=== PATIENT | male | born 1990 | race Caucasian/White ===

== ENCOUNTER 2020-09-16 13:00 | Emergency (ER) | payer OTHER ==
[~2020-09-16] VITALS: Ht 185.4 cm; Wt 216.0 kg
[2020-09-16 13:10] VITALS: BP 141/100
--- NOTE | 2020-09-16 13:24 | PHYS DOC ---
General Adult EDM: Chief Complaint: FOOT INJURY PAIN HPI: HPI: Patient is a 30 year old morbidly obese male who presents to the ED today complaining of moderate pain to the left lateral foot that began yesterday. Patient denies any injury. Describes the pain as sharp and intermittent worse on weightbearing. States he has had similar pain before but he had cellulitis at that point. Denies any fever. Review of Systems: Review of Systems: Constitutional: Denies fever or chills. [] Musculoskeletal: Reports left lateral foot pain Integument: Denies rash. [] Neurologic: Denies headache, focal weakness or sensory changes. [] Psychiatric: Denies depression or anxiety. [] Heart Score: Risk Factors: Risk Factors: DM, Current or recent (<one month) smoker, HTN, HLP, family history of CAD, obesity. Risk Scores: Score 0 - 3: 2.5% MACE over next 6 weeks - Discharge Home Score 4 - 6: 20.3% MACE over next 6 weeks - Admit for Clinical Observation Score 7 - 10: 72.7% MACE over next 6 weeks - Early Invasive Strategies Physical Exam: PE: Constitutional: Well developed, well nourished, no acute distress, non-toxic appearance. [] Skin: Warm, dry, no erythema, no rash. [] Back: No tenderness, no CVA tenderness. [] Extremities: Morbidly obese patient, left foot with no obvious deformity. Soft tissue swelling noted on the left foot, no redness on bilateral feet. +2 bilateral pedal pulses. Range of motion intact of bilateral feet. Negative Homans' sign to the left lower extremity. Neurologic: Alert and oriented X 3, normal motor function, normal sensory function, no focal deficits noted. [] Psychologic: Affect normal, judgement normal, mood normal. [] EKG: EKG: [] Radiology/Procedures: Radiology/Procedures: []PROCEDURE: FOOT LEFT 3V 3 views left foot dated 09/16/2020. No comparison available. CLINICAL INDICATION: Pain on lateral aspect of foot. FINDINGS: 3 views of left foot show normal bony alignment. No displaced fracture. No acute osseous or articular abnormality. No periostitis or bone destruction. There is mild soft tissue swelling. IMPRESSION: Soft tissue swelling with no apparent underlying acute bony abnormality. Electronically signed by: Naveen Tolbert MD (09/16/2020 1:40 PM) [facility] DICTATED and SIGNED BY: NAVEEN TOLBERT MD DATE: 09/16/20 1340 PROCEDURE: VENOUS LOWER EXTREMITY LEFT Left lower extremity venous Doppler dated 09/16/2020. No comparison available. Clinical data indication: Left lower extremity swelling redness. FINDINGS: Grayscale, color-flow and spectral waveform analysis performed to include the deep venous system of the left lower extremity. There is normal compressibility, phasicity and augmentation of flow throughout. No filling defects are seen. IMPRESSION: No evidence of left lower extremity deep vein thrombosis. Electronically signed by: Naveen Tolbert MD (09/16/2020 3:26 PM) [facility] DICTATED and SIGNED BY: NAVEEN TOLBERT MD DATE: 09/16/20 1526 Course & Med Decision Making: Course & Med Decision Making Pertinent Labs and Imaging studies reviewed. (See chart for details) This is a 30-year-old morbidly obese patient with BMI of 62.8 presenting to the ED today complaining of left lateral foot pain that began 2 days ago, no known injury. Left foot x-rays interpreted by radiologist were noted for soft tissue swelling on the lateral aspect otherwise no acute findings. Venous doppler of the LLE is negative for any acute findings. We talked about ways of managing patient's pain including getting insoles for his shoes. Considering his weight weight loss will be helpful. Ice elevation encouraged. OTC pain relievers. Provided orthopedic doctor for follow-up in 1 week if pain persist Loco Disclaimer: Loco Disclaimer: This electronic medical record was generated, in whole or in part, using a voice recognition dictation system. Departure Departure Impression: Primary Impression: Foot pain, left Disposition: 01 DC HOME SELF CARE/HOMELESS Condition: STABLE Referrals: MO MATUTE MD follow up in one week Patient Instructions: Musculoskeletal Pain Additional Instructions: You were seen for left foot pain, your left foot x-rays are negative for any acute findings, your bilateral feet do not appear to have redness consistent with cellulitis. Your pain is likely musculoskeletal. Try to ice and elevate the extremity. Consider gait well-padded insoles for your shoes. Please take Tylenol or Motrin as needed for pain. Follow-up with your own doctor in 1 to 2 weeks or the provided orthopedic doctor Scripts Naproxen (NAPROXEN) 500 Mg Tablet 1 TAB PO BID for pain, #20 TAB 0 Refills Prov: YVONNE CARVALHO APRN 09/16/20 Hydrocodone Bit/Acetaminophen (HYDROCODONE-APAP 5-325 ) 1 Tab Tablet 1 TAB PO PRN Q6HRS PRN for PAIN, #12 TAB 0 Refills Prov: YVONNE CARVALHO APRN 09/16/20 YVONNE CAVRALHO APRN Sep 16, 2020 13:24
--- NOTE | 2020-09-16 13:43 | RAD ---
3 views left foot dated 09/16/2020. No comparison available. CLINICAL INDICATION: Pain on lateral aspect of foot. FINDINGS: 3 views of left foot show normal bony alignment. No displaced fracture. No acute osseous or articular abnormality. No periostitis or bone destruction. There is mild soft tissue swelling. IMPRESSION: Soft tissue swelling with no apparent underlying acute bony abnormality. Electronically signed by: Naveen Tolbert MD (09/16/2020 1:40 PM) [facility]
[2020-09-16] MEDS ORDERED: NAPROXEN 500 MG TABLET PO STA (14:25)
[2020-09-16] MEDS ORDERED: HYDROcodone/APAP 5/325MG 1 TAB TABLET PO ONE (14:30)
--- NOTE | 2020-09-16 15:28 | RAD ---
Left lower extremity venous Doppler dated 09/16/2020. No comparison available. Clinical data indication: Left lower extremity swelling redness. FINDINGS: Grayscale, color-flow and spectral waveform analysis performed to include the deep venous system of the left lower extremity. There is normal compressibility, phasicity and augmentation of flow throughout. No filling defects are seen. IMPRESSION: No evidence of left lower extremity deep vein thrombosis. Electronically signed by: Naveen Tolbert MD (09/16/2020 3:26 PM) [facility]
[2020-09-16] MEDS ORDERED: NAPR-514 PO (15:58)
[2020-09-16] MEDS ORDERED: HYDR-2761 PO (15:58)
== END 2020-09-16 16:05 | disposition home or self-care (01) ==
LOC: ER 13:00
DX: M79.672 Pain in left foot (principal); E66.01 Morbid (severe) obesity due to excess calories; Z68.44 Body mass index [BMI] 60.0-69.9, adult
CPT/HCPCS: 73630; 93971; 99284